=== PATIENT | male | born 1945 | race Caucasian/White ===

== ENCOUNTER 2017-06-14 07:18 | Day surgery (SDC) | payer MEDICARE, OTHER ==
[~2017-06-14] VITALS: Ht 172.7 cm; Wt 76.7 kg
[~2017-06-14 07:18] MED LIST: ASPI81CH PO; ATOR10 PO; ATOR40TA PO; COQ1050 MG PO; DOC250 PO; FINA5 PO; FINASTERIDE1 MG PO; GEMF600 PO; GLUC500 PO; Hair, Skin & N1 EACH PO; LOSARTAN POTAS100 MG PO; LOSHYD100 PO; METO50 PO; OMEP20ER; OSTEO BI-FLEX1 EAC2 PO; WARF5
[2017-06-14] MEDS ORDERED: LOVA40 (08:07)
== END 2017-06-14 09:40 | disposition home or self-care (01) ==
LOC: ORSCSDS 07:18
PROVIDERS: Internal Medicine Gastroenterology
PROC: 0DJD8ZZ Inspection of Lower Intestinal Tract, Via Natural or Artificial Opening Endoscopic (ICD-10-PCS; principal; 2017-06-14 09:00)
DX: Z12.11 Encounter for screening for malignant neoplasm of colon (principal); Z86.010 Personal history of colon polyps; R19.4 Change in bowel habit; I10 Essential (primary) hypertension; K57.30 Diverticulosis of large intestine without perforation or abscess without bleeding; E78.5 Hyperlipidemia, unspecified; Z80.0 Family history of malignant neoplasm of digestive organs; Z87.891 Personal history of nicotine dependence; Z79.899 Other long term (current) drug therapy
CPT/HCPCS: J0330; J1980; J2250; J2405; J3010

== ENCOUNTER → 2017-08-02 | Outpatient (CLI) | payer MEDICARE, OTHER ==
[~2017-08-02] MED LIST changes: +LOVA40
== END | disposition home or self-care (01) ==
LOC: PLD 08:16 → LAB SHORT 08:16
DX: D22.5 Melanocytic nevi of trunk (principal)
CPT/HCPCS: 88305

== ENCOUNTER 2018-05-29 06:07 | Day surgery (SDC) | payer MEDICARE, OTHER ==
[~2018-05-29] VITALS: Ht 172.7 cm; Wt 77.0 kg
== END 2018-05-29 08:30 | disposition home or self-care (01) ==
LOC: ORSCSDS 06:07
PROVIDERS: Orthopaedic Surgery
PROC: 01N50ZZ Release Median Nerve, Open Approach (ICD-10-PCS; principal; 2018-05-29 07:30)
DX: G56.01 Carpal tunnel syndrome, right upper limb (principal); I10 Essential (primary) hypertension; E78.5 Hyperlipidemia, unspecified; Z79.899 Other long term (current) drug therapy; Z87.891 Personal history of nicotine dependence
CPT/HCPCS: J2250; J3010; J7120

== ENCOUNTER 2022-07-18 07:19 | Day surgery (SDC) | payer MEDICARE, OTHER ==
[~2022-07-18] VITALS: Ht 172.7 cm; Wt 70.1 kg
[2022-07-18] MEDS ORDERED: ATEN25 (08:17)
== END 2022-07-18 09:57 | disposition home or self-care (01) ==
LOC: ORSCSDS 07:19
PROVIDERS: Internal Medicine Gastroenterology
PROC: 0DBM8ZX Excision of Descending Colon, Via Natural or Artificial Opening Endoscopic, Diagnostic (ICD-10-PCS; principal; 2022-07-18 09:00)
PROC: 0DBK8ZX Excision of Ascending Colon, Via Natural or Artificial Opening Endoscopic, Diagnostic (ICD-10-PCS; principal; 2022-07-18 09:00)
DX: R63.4 Abnormal weight loss (principal); Z86.010 Personal history of colon polyps; Z83.71 Family history of colonic polyps; K63.5 Polyp of colon; D12.4 Benign neoplasm of descending colon; K57.30 Diverticulosis of large intestine without perforation or abscess without bleeding; K64.8 Other hemorrhoids; Z87.891 Personal history of nicotine dependence; Z79.82 Long term (current) use of aspirin; Z79.899 Other long term (current) drug therapy
CPT/HCPCS: 88305; J2704; J7120

== ENCOUNTER 2022-11-19 10:08 | Emergency (ER) | payer MEDICARE, OTHER ==
[~2022-11-19] VITALS: Ht 170.2 cm; Wt 68.5 kg
[~2022-11-19 10:08] MED LIST changes: +ATEN25
[2022-11-19 10:35] VITALS: BP 157/70
[2022-11-19] MEDS ORDERED: Norco 7.5-3251 EACH PO (12:15)
[2022-11-19] MEDS ORDERED: CRUTCH2 XX (12:15)
== END 2022-11-19 12:27 | disposition home or self-care (01) ==
LOC: ER 10:08
DX: S32.040A Wedge compression fracture of fourth lumbar vertebra, initial encounter for closed fracture (principal); S92.002A Unspecified fracture of left calcaneus, initial encounter for closed fracture; W11.XXXA Fall on and from ladder, initial encounter; Z91.018 Allergy to other foods; Z91.09 Other allergy status, other than to drugs and biological substances; Z88.8 Allergy status to other drugs, medicaments and biological substances; Z79.82 Long term (current) use of aspirin; Z79.899 Other long term (current) drug therapy; I10 Essential (primary) hypertension; Z87.891 Personal history of nicotine dependence
CPT/HCPCS: 29515; 72100; 73610; 99284-25; A9270

== ENCOUNTER 2022-11-28 13:47 | Day surgery (SDC) | payer MEDICARE, OTHER ==
[~2022-11-28] VITALS: Ht 172.7 cm; Wt 67.7 kg
[~2022-11-28 13:47] MED LIST changes: +CRUTCH2 XX; +Norco 7.5-3251 EACH PO
[2022-11-28] MEDS ORDERED: AMLODIPINE BESYL5 MG PO (14:52)
[2022-11-28] MEDS ORDERED: METOPROLOL SUCC25 MG PO (14:52)
--- NOTE | 2022-11-28 15:24 | NUR ---
11/28/22 1524 Perla Day TIMEOUT FOR POPLETEAL BLOCK AT BEDSIDE WITH DR. SETH AT 1512, IDENTIFIED CORRECT PATIENT, CORRECT SITE, CORRECT PROCEDURE. BLOCK COMPLETED AT 1516.
--- NOTE | 2022-11-28 16:26 | NUR ---
11/28/22 1626 Daniel Hill 0.1ML OF EPI 1MG/ML ADDED TO 20ML OF ROPIVICCAINE 0.5% TO CREATE A LOCAL SOLUTION OF ROPIVICAINE 0.5% WITH EPI 1:200,000. 15MLS INJECTED. PT WITH BLOCK PLACED IN PRE-OP WITHOUT DIFFICULTY.
[2022-11-28 17:05] VITALS: BP 136/69
== END 2022-11-28 17:24 | disposition home or self-care (01) ==
LOC: ORSCSDS 13:47
PROVIDERS: Podiatrist Foot & Ankle Surgery
PROC: 0SGJ04Z Fusion of Left Tarsal Joint with Internal Fixation Device, Open Approach (ICD-10-PCS; principal; 2022-11-28 15:30)
DX: S92.012A Displaced fracture of body of left calcaneus, initial encounter for closed fracture (principal); I10 Essential (primary) hypertension; E78.5 Hyperlipidemia, unspecified; Z87.891 Personal history of nicotine dependence; J45.909 Unspecified asthma, uncomplicated; Z79.899 Other long term (current) drug therapy
CPT/HCPCS: A9270; C1713; C1734; C1769; J0171; J0690; J1100; J2250; J2371; J2405; J2704; J2795; J3010; J7120

== ENCOUNTER 2024-11-11 19:12 | Emergency (ER) | payer MEDICARE ==
[~2024-11-11] VITALS: Ht 172.7 cm; Wt 74.8 kg
[~2024-11-11 19:12] MED LIST changes: +AMLODIPINE BESYL5 MG PO; +METOPROLOL SUCC25 MG PO
[2024-11-11] MEDS ORDERED: NS 1,000 ML IV SCH ×2 (19:25→21:10)
[2024-11-11 19:35] LABS: BASOPHILS ABSOLUTE AUTO 0.06 K/mm3 (0.00-0.23); BASOPHILS PERCENT AUTO 1 % (0-2); EOSINOPHILS ABSOLUTE AUTO 0.05 K/mm3 (0.00-0.68); EOSINOPHILS PERCENT AUTO 1 % (0-6); Hematocrit 40.3 % (37.0-53.0); Hemoglobin 13.3 g/dL (13.5-17.5); IMMATURE GRAN ABSOLUTE AUTO 0.05 K/mm3 (0.00-0.10); IMMATURE GRAN PERCENT AUTO 1 % (0-1); LYMPHOCYTES ABSOLUTE AUTO 0.74 K/mm3 (0.84-5.20); LYMPHOCYTES PERCENT AUTO 9 % (21-46); MONOCYTES ABSOLUTE AUTO 0.56 K/mm3 (0.16-1.47); MONOCYTES PERCENT AUTO 7 % (4-13); Mean Corpuscular HGB Conc 33.0 g/dL (31.5-36.5); Mean Corpuscular Volume 93 fL (80-100); NEUTROPHILS ABSOLUTE AUTO 7.09 K/mm3 (1.96-9.15); NEUTROPHILS PERCENT AUTO 83 % (41-73); NRBC ABSOLUTE 0.00 K/mm3 (0.00-0.02); NRBC Auto 0.0 /100 WBC (0.0-0.2); Platelet Count 174 K/mm3 (150-400); RDW Coefficient Variation 13.8 % (11.7-14.2); RDW Standard Deviation 47.7 fL (35.1-46.3)
[2024-11-11 20:05] LABS: Alanine Aminotransfer (ALT/SGP 24 U/L (12-78); Albumin, Blood 3.5 g/dL (3.4-5.0); Albumin/Globulin Ratio 1.0 (0.8-1.8); Anion Gap 9 mmol/L (3-11); Aspartate Aminotrans (AST/SGOT 15 U/L (12-37); Bilirubin, Total 0.4 mg/dL (0.1-1.0); Blood Urea Nitrogen 34 mg/dL (8-24); CO2, Blood 26 mmol/L (21-32); Calcium, Blood 8.5 mg/dL (8.5-10.1); Chloride, Blood 108 mmol/L (98-108); Creatinine, Blood 1.72 mg/dL (0.60-1.20); Ethanol (Alcohol), Blood, Med <3 mg/dL; Globulin, Blood 3.6 g/dL (2.2-4.0); Glucose, Blood 161 mg/dL (70-99); Potassium, Blood 4.7 mmol/L (3.5-5.5); Sodium, Blood 138 mmol/L (136-145); Total Protein, Blood 7.1 g/dL (6.4-8.2)
[2024-11-11 22:00] VITALS: BP 128/80
== END 2024-11-11 22:15 | disposition home or self-care (01) ==
LOC: ER 19:12
PROVIDERS: Emergency Medicine
DX: E86.0 Dehydration (principal); T67.5XXA Heat exhaustion, unspecified, initial encounter; F12.929 Cannabis use, unspecified with intoxication, unspecified; N28.9 Disorder of kidney and ureter, unspecified; I10 Essential (primary) hypertension; E78.00 Pure hypercholesterolemia, unspecified; N40.0 Benign prostatic hyperplasia without lower urinary tract symptoms; Z87.891 Personal history of nicotine dependence; Z88.8 Allergy status to other drugs, medicaments and biological substances; Z91.018 Allergy to other foods; Z79.82 Long term (current) use of aspirin; Z79.899 Other long term (current) drug therapy; X32.XXXA Exposure to sunlight, initial encounter
CPT/HCPCS: 80053; 80320; 82550; 84484; 85025; 93005; 93010; 96360; 96361; 99285-25; J7030